=== PATIENT | male | born 1985 | race Caucasian/White ===

== ENCOUNTER 2020-03-14 09:37 | Outpatient (REF) | payer MEDICARE, SELFPAY | END 2020-03-14 09:38 | disposition home or self-care (01) | LOC: HO.HMGCLDS 09:37 | PROVIDERS: PCP Internal Medicine; Visit Provider Internal Medicine | DX: Z20.828 Contact with and (suspected) exposure to other viral communicable diseases (principal) | CPT/HCPCS: 36415; C9803; U0003 ==

== ENCOUNTER 2020-05-09 08:57 | Outpatient (REF) | payer MEDICARE, SELFPAY ==
[2020-05-09 09:51] LABS: MANUAL DIFF FLAG NO
[2020-05-09 09:56] LABS: Basophils Percent Auto 0.3 % (0-2); Eosinophils Percent Auto 0.9 % (0-4); Hematocrit 45.1 % (42-52); Hemoglobin 15.3 g/dl (14.0-18.0); Imm Gran Abs Auto 0.01 X10*3/uL (0.00-0.03); Imm Gran Pct Auto 0.3 % (0.0-0.4); Lymphocytes Absolute Auto 0.9 X10*3/uL (1.2-4.9); Lymphocytes Percent Auto 27.1 % (20-40); Mean Corpuscular HGB Conc 33.9 g/dl (31.0-36.0); Mean Corpuscular Hemoglobin 30.3 pg (27.0-33.0); Mean Corpuscular Volume 89.3 fL (80-98); Monocytes Absolute Auto 0.3 X10*3/uL (0.1-1.2); Monocytes Percent Auto 8.8 % (2-11); Neutrophils Absolute Auto 2.1 X10*3/uL (2.0-8.3); Neutrophils Percent Auto 62.6 % (45-73); Platelet Count 223 X10*3/uL (160-400); Red Blood Count 5.05 X10*6/uL (4.60-5.80); Red Cell Distribution Width 12.7 % (11.0-16.0); White Blood Count 3.3 X10*3/uL (4.8-10.8)
[2020-05-09 10:39] LABS: Alanine Aminotransferase 8 U/L (0-40); Albumin Level 4.6 g/dL (3.5-5.0); Alkaline Phosphatase 60 U/L (39-117); Anion Gap 10 (12-20); Aspartate Amino Transferase 21 U/L (5-37); Bilirubin Total 0.7 mg/dL (0.0-1.0); Blood Urea Nitrogen 10 mg/dL (9-16); Calcium 9.3 mg/dL (8.4-10.2); Carbon Dioxide 28 mmol/L (22-29); Chloride 106 mmol/L (96-108); Cholesterol 164 mg/dL; Estimated Glomerular Filt Rate > 60; Glucose Fasting 99 mg/dL (60-99); HDL Cholesterol 60 mg/dL; LDL Cholesterol Calculated 99 mg/dl; Potassium 4.1 mmol/L (3.3-5.1); Sodium 140 mmol/L (135-145); Total Protein 7.1 g/dL (6.5-8.0); Triglycerides 28 mg/dL
[2020-05-09 10:54] LABS: TSH reflex Free T4 1.06 uIU/mL (0.32-4.0)
[2020-05-09 12:19] LABS: Folate 17.7 ng/mL (> or = 4.0); Vitamin B12 412 pg/mL (200-900)
== END 2020-05-09 08:58 | disposition home or self-care (01) ==
LOC: HO.LAB 08:57
PROVIDERS: PCP Internal Medicine; Visit Provider Internal Medicine
DX: Z00.00 Encounter for general adult medical examination without abnormal findings (principal); F41.9 Anxiety disorder, unspecified; E66.3 Overweight; E78.00 Pure hypercholesterolemia, unspecified
CPT/HCPCS: 36415; 80053; 80061; 82607; 82746; 84443; 85025

== ENCOUNTER 2022-12-25 15:55 | Outpatient (AMB) | payer BC, MEDICARE, SELFPAY ==
--- NOTE | 2022-12-25 16:25 | A.OFFPC_ITS ---
Vital Signs 12/25/22 16:26 Height 5 ft 4 in Weight 121 lb 8 oz BMI 20.9 BP 102/70 Blood Pressure Location Lt brachial Position Sitting Pulse 90 Pulse Source Pulse Oximeter Pulse Oximetry (%) 96 Oxygen Delivery Method Room Air Intake Visit Reasons: Annual Physical Intake Note: Patient is here today for a physical. Manager Of Case Required: No Accompanied by: Self / Same As Patient Allergies No Known Allergies Allergy (Verified 12/25/22 16:27) Medication List - Last Reconciled 12/25/22 by Allison Camarillo MD multivitamin 1 tab PO DAILY Tobacco use date assessed: 12/25/22 Dental Screening Dental Screen Date: 12/25/22 Did you have a dental visit in the last 12 months?: Yes Did you have a dental problem in the last 6 months where you did not have access to dental care?: No Was dental information given to patient?: Patient has dentist HPI Annual Physical HPI Details 37-year-old male with Asperger's syndrom e generalized anxiety disorder and hypercholesterolemia last seen in February 2022. Patient is here for physical exam [facility] Medical History (Updated 02/20/22 @ 17:01 by Allison Camarillo MD) Desensitization to allergy shot Hemorrhoids Aspergers' syndrome Hypercholesterolemia Family History Mother Breast cancer genetic susceptibility Maternal Aunt Lung cancer Social History (Updated 12/25/22 @ 16:57 by Allison Camarillo MD) Housing: Other Alcohol intake: current Alcohol intake frequency: holidays/special occasions only Patient Tobacco Use Status: Never used Tobacco e-Cigarette/Vaping Use: Never Used Second Hand Smoke Exposure: No service: No Current occupational status: employed Cognitive needs: No Hearing needs: No Vision needs: No Questionnaire PHQ-9 Over the last 2 weeks, how often have you been bothered by any of the following problems? 1. Little interest or pleasure in doing things: not at all 2. Feeling down, depressed, or hopeless: not at all 3. Trouble falling or staying asleep, or sleeping too much: not at all 4. Feeling tired or having little energy: not at all 5. Poor appetite or overeating: not at all 6. Feeling bad about yourself - or that you are a failure or have let yourself or your family down: not at all 7. Trouble concentrating on things, such as reading the newspaper or watching television: not at all 8. Moving or speaking so slowly that other people could have noticed. Or the opposite - being so fidgety or restless that you have been moving around a lot more than usual: not at all 9. Thoughts that you would be better off or of hurting yourself in some way: not at all Total score: 0 Depression Screening Interpretation: Negative Depression Screening Done: Yes 46115 - PHQ-9 Billing: Yes Source: Developed by Drs. Kvng Gonzalez, Nick Bourgeois and colleagues, with an educational melanie from [employer]. Thrive Questionnaire Date Thrive assessed: 12/16/21 AUDIT C Alcohol Use Questionnaire (AUDIT-C) 1. How often do you have a drink containing alcohol?: Monthly or less 2. How many drinks containing alcohol do you have on a typical day when you are drinking?: 1 or 2 3. How often do you have six or more drinks on one occasion?: Never Total Score: 1 JESSIE-7 AMB Questionnaire JESSIE-7 Date JESSIE - 7 assessed: 12/25/22 Feeling nervous, anxious, or on edge: 0 = Not at all Not being able to stop or control worryin = Not at all Worrying too much about different things: 0 = Not at all Trouble relaxin = Not at all Being so restless that it is hard to sit still: 0 = Not at all Becoming easily annoyed or irritable: 0 = Not at all Feeling afraid as if something awful might happen: 0 = Not at all Total JESSIE-7 score (0-4 normal; 5-9 mild; 10-14 moderate; 15-21 severe): 0 Source: Developed by Drs. Kvng Gonzalez, Flaca Luo, Nick Durand and colleagues, with an educational melanie from [employer]. JESSIE-7 Assessment Billing JESSIE-7 Assessment Tool: JESSIE-7 Assessment 42097 Review of Systems Const Denies poor appetite and Denies weakness Eyes Denies no additional complaints ENT Reports Normal hearing present, Denies dizziness, Denies nasal congestion, Denies tinnitus and Denies sore throat Card Denies chest pain, Denies syncope, Denies rapid heart rate and Denies dyspnea Resp Denies cough and Denies dyspnea GI Denies change in stool character, Reports constipation, Denies diarrhea, Denies nausea and Denies vomiting Denies dysuria and Denies urinary frequency Neuro Reports Normal hearing present, Denies confusion, Denies dizziness, Denies syncope and Denies weakness Psych Denies confusion Physical exam (Primary Care) Vital Signs: Last Vital Signs Pulse 90 12/25/22 16:26 BP 102/70 12/25/22 16:26 Pulse Ox 96 12/25/22 16:26 Oxygen Delivery Method Room Air 12/25/22 16:26 BMI result Body Mass Index 20.9 Tobacco/Smoking Status: Tobacco use Status Tobacco use date assessed 12/25/22 12/25/22 16:33 Patient Tobacco Use Status Never used Tobacco 12/25/22 16:27 e-Cigarette/Vaping Use Never Used 12/25/22 16:27 PHQ-9: PHQ-9 Score PHQ-9: Total score 0 12/25/22 16:35 Depression Screening Interpretation: Negative Thrive Assessment: Date of Thrive Assessment Date Thrive assessed 12/16/21 12/25/22 16:27 Const General: alert and awake; No confusion Orientation/consciousness: No confusion HENMT Head: Yes normocephalic Ears: external ears normal and TM's normal bilaterally Face and sinus: Yes normal facial exam Mouth: moist mucous membranes Throat: Yes tonsils normal Eyes Conjunctivae: conjunctivae normal Pupils: Equal, round and reactive pupils present and Pupil accommodation reflex normal Direct Ophthalmoscopy: normal light reflex Neck Neck: No lymphadenopathy Thyroid: Thyroid normal Chest Chest palpation & inspection: normal inspection of the chest Resp Effort & Inspection: normal respiratory effort and no audible wheezes Auscultation: clear to auscultation bilaterally, no crackles, no wheezes and lung sounds not diminished Cardio Rate: regular rate Rhythm: regular rhythm Peripheral pulses: radial pulses present and dorsalis pedis present GI Other: visual negative Palpation (GI): no masses Auscultation: normal bowel sounds and normoactive bowel sounds Male General Exam: Yes normal external exam Skin General skin exam: no rashes or lesions noted Rashes: no rashes Neuro General: deep tendon reflexes 2+ bilaterally and No confusion Cranial nerves: Yes Equal, round and reactive pupils present, Yes Midline tongue present, Yes Normal hearing present and Yes Ability to bilaterally elevate shoulders present Cognition (Neuro): normal cognition Gait exam (Neuro): Normal gait present Motor exam (neuro): 5/5 motor strength present throughout Deep tendon reflexes (DTR's): Right brachioradialis reflex intensity grade: 2+, Left brachioradialis reflex intensity grade: 2+, Right patellar reflex intensity grade: 2+ and Left patellar reflex intensity grade: 2+ Extrem General: No edema Office Procedures Flu Questionnaire Does the patient have a severe egg allergy?: No Does the patient have severe life threatening allergies?: No Does the patient have a fever or illness today?: No Has the patient ever had Guillain-Cecil Syndrome?: No Has the patient ever had any past reaction to a flu shot?: No Immunizations flu vacc [id number] 6mos up(PF) 60 mcg(15 mcgx4)/0.5 mL IM syringe Performing Provider: Allison Camarillo MD Performing Location: [facility] Administered by: JOSE Quintanilla on 12/25/22 16:36 Dose Route Admin Location Dispensed Lot Number Expiration Date 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 0.5 mL IM Left Deltoid 0.5 mL [id number] 09/05/23 [id number] [employer] VIS Given Date VIS Provided VIS Publication Date 12/25/22 Single Vaccine 20 Eligibility Eligibility Date Funding Source Not [facility] Eligible 12/25/22 Private Assessment and Plan Assessment & Plan (1) Annual physical exam: Code(s): Z00.00 - Encounter for general adult medical examination without abnormal findings (2) Generalized anxiety disorder: Comment: Amna Goldstein 11/2019, decline referral (12/16/2021) Code(s): F41.1 - Generalized anxiety disorder Plan: Discussed about importance of counseling and therapy (3) Aspergers' syndrome: Comment: OCD, Tourette's syndrome [facility] Counseling Code(s): F84.5 - Asperger's syndrome Plan: Continue with counseling and therapy Orders: Orders Influenza [id number] Immunization Today Z23 - Encounter for immunization Coding Level of Care Code Est Pt Prev Care 18-39y(14274) Diagnoses Annual physical exam Z00.00 Generalized anxiety disorder F41.1 Aspergers' syndrome F84.5 Additional Codes JESSIE-7 Assessment Billing - JESSIE-7 Assessment Tool: JESSIE-7 Assessment 68090 ([id number])
[2022-12-25 16:26] VITALS: BP 102/70; PULSE 90; O2SAT 96; BMI 20.9
== END 2022-12-25 17:08 | disposition home or self-care (01) ==
PROVIDERS: Visit Provider Internal Medicine
DX: Z00.00 Encounter for general adult medical examination without abnormal findings (principal); F41.1 Generalized anxiety disorder; F84.5 Asperger's syndrome; Z23 Encounter for immunization
CPT/HCPCS: 90471; 90686; 99395

== ENCOUNTER 2023-09-13 13:09 | Outpatient (AMB) | payer BC, SELFPAY ==
[2023-09-13 13:17] VITALS: BP 104/70; PULSE 80; TEMP 36.7; O2SAT 98; BMI 21.7
--- NOTE | 2023-09-13 13:17 | AM.OFFWIN_ITS ---
Intake Vital Signs 09/13/23 13:17 Height 5 ft 4 in Weight 126 lb 6 oz BMI 21.7 BP 104/70 Blood Pressure Location Rt brachial Position Sitting Pulse 80 Pulse Source Pulse Oximeter Temp 98.0 F Temp Source Temporal Artery Scan Pulse Oximetry (%) 98 Oxygen Delivery Method Room Air Intake Visit Reasons: EP rash Intake Note: pt is here for rash on left hand Patient Tobacco Use Status: Never used Tobacco Allergies No Known Allergies Allergy (Verified 09/13/23 13:19) Medication List - Last Reconciled 09/13/23 by Marah Mcintyre NP multivitamin 1 tab PO DAILY triamcinolone acetonide 0.1% 1 appl topical BID 14 days Do you need a note to return to daycare/school/sports/work: No HPI EP rash HPI Details This note is constructed using voice recognition software. While every effort has been made to ensure accuracy, motion picture printer errors may have been included. 37-year-old male patient presents with 1 month history rash to left wrist. He notes that initially it started after using a particular type of glove, and it seemed to continue. The area is itchy. He denies any lesions to the area. He is tried topical hydrocortisone, however stopped as he was worried about using it for prolonged periods of time. When he stopped using it the area seemed to come back and get worse. He also notes that the area gets more red if he is to use [id number] lotions. He has had no new soaps, lotions, foods, or other exposures to his knowledge. He has no history of skin irritation or issues. No fever, chills. [facility] Medical History (Updated 02/20/22 @ 17:01 by Allison Camarillo MD) Desensitization to allergy shot Hemorrhoids Aspergers' syndrome Hypercholesterolemia Family History Mother Breast cancer genetic susceptibility Maternal Aunt Lung cancer Social History (Updated 12/25/22 @ 16:57 by Allison Camarillo MD) Housing: Other Alcohol intake: current Alcohol intake frequency: holidays/special occasions only Patient Tobacco Use Status: Never used Tobacco e-Cigarette/Vaping Use: Never Used Second Hand Smoke Exposure: No service: No Current occupational status: employed Cognitive needs: No Hearing needs: No Vision needs: No Review of Systems Const All systems reviewed & are unremarkable except as noted in HPI and below Physical Exam Vital Signs: Last Vital Signs Temp 98.0 F 09/13/23 13:17 Pulse 80 09/13/23 13:17 BP 104/70 09/13/23 13:17 Pulse Ox 98 09/13/23 13:17 Oxygen Delivery Method Room Air 09/13/23 13:17 BMI result Body Mass Index 21.7 Const General: cooperative, healthy appearing, comfortable, no acute distress and alert Orientation/consciousness: patient oriented x3 Limitations: no limitations Skin Other: 4 x 5 cm area to left dorsal wrist, erythematous with areas of excoriation. No lesions, no discharge, no warmth. General skin exam: elasticity normal and turgor normal Neuro General: patient oriented x3 Extrem General: Yes normal to inspection, Yes full ROM, Yes capillary refill normal and Yes normal exam except as noted Psych Appearance: grossly normal Mental Status: mental status grossly normal Speech and movement: Normal speech and movement present Affect: normal affect Assessment & Plan Assessment & Plan (1) Dermatitis: Code(s): L30.9 - Dermatitis, unspecified Plan: Medium potency topical steroid ordered. Advised follow-up worsening or failure to resolve Plan See above for full details and plan. Medications: New triamcinolone acetonide 0.1% 1 appl topical BID 14 days 15 grams 0RF Coding Level of Care Code Est Pt Level 3 (02811) Diagnoses Dermatitis L30.9
== END 2023-09-13 13:49 | disposition home or self-care (01) ==
PROVIDERS: PCP Internal Medicine; Visit Provider Registered Nurse
DX: L30.9 Dermatitis, unspecified (principal)
CPT/HCPCS: 99213

== ENCOUNTER 2023-12-27 16:20 | Outpatient (AMB) | payer BC, SELFPAY ==
--- NOTE | 2023-12-27 16:20 | A.OFFPC_ITS ---
Vital Signs 3 12/27/23 16:22 Height 5 ft 4 in Weight 123 lb 8 oz BMI 21.2 BP 90/66 Blood Pressure Location Lt brachial Position Sitting Pulse 84 Pulse Source Pulse Oximeter Pulse Oximetry (%) 97 Oxygen Delivery Method Room Air Intake Visit Reasons: pe Intake Note: Patient is here today for a physical. Community Health Coordinator Required: No Jigger Operator: Not Required per policy Accompanied by: Self / Same As Patient Allergies No Known Allergies Allergy (Verified 12/27/23 16:22) Medication List - Last Reconciled 12/27/23 by Allison Camarillo MD multivitamin 1 tab PO DAILY Tobacco use date assessed: 12/27/23 Dental Screening Dental Screen Date: 12/27/23 Did you have a dental visit in the last 12 months?: Yes Did you have a dental problem in the last 6 months where you did not have access to dental care?: No Was dental information given to patient?: Patient has dentist HPI pe 2 HPI0 Details 38-year-old male with Asperger's syndrom e and generalized anxiety disorder coming in for physical exam last seen last year. [facility] Medical History (Updated 12/27/23 @ 16:47 by Allison Camarillo MD) Desensitization to allergy shot Hemorrhoids Aspergers' syndrome Hypercholesterolemia Surgical History (Updated 12/27/23 @ 16:25 by MARTHA Andrews) No pertinent past surgical history Family History (Updated 12/27/23 @ 16:25 by MARTHA Andrews) Mother Breast cancer genetic susceptibility Maternal Aunt Lung cancer Social History (Updated 12/27/23 @ 16:40 by Allison Camarillo MD) Housing: Other Alcohol intake: current Alcohol intake frequency: holidays/special occasions only Comment: 2x a year 1-2 drinks Patient Tobacco Use Status: Never used Tobacco e-Cigarette/Vaping Use: Never Used Second Hand Smoke Exposure: No service: No Current occupational status: employed Cognitive needs: No Hearing needs: No Vision needs: Yes (Glasses) Questionnaire PHQ-9 Over the last 2 weeks, how often have you been bothered by any of the following problems? 1. Little interest or pleasure in doing things: not at all 2. Feeling down, depressed, or hopeless: not at all 3. Trouble falling or staying asleep, or sleeping too much: not at all 4. Feeling tired or having little energy: not at all 5. Poor appetite or overeating: not at all 6. Feeling bad about yourself - or that you are a failure or have let yourself or your family down: not at all 7. Trouble concentrating on things, such as reading the newspaper or watching television: not at all 8. Moving or speaking so slowly that other people could have noticed. Or the opposite - being so fidgety or restless that you have been moving around a lot more than usual: not at all 9. Thoughts that you would be better off or of hurting yourself in some way: not at all Total score: 0 Depression Screening Interpretation: Negative Depression Screening Done: Yes Source: Developed by Drs. Kvng Gonzalez, Flaac Luo, Nick Durand and colleagues, with an educational melanie from [employer]. Thrive Questionnaire Date Thrive assessed: 12/27/23 I am a: Patient What is your living situation today?: I have a steady place to live Within the past 12 months, did the food you bought not last and you didn't have the money to get more?: Never true Within the past 12 months, did you worry whether your food would run out before you got money to buy more?: Never true Do you have trouble paying for medicines?: No Do you have trouble getting transportation to medical appointments?: No Do you have trouble paying your heating and electricity bill?: No Do you have trouble taking care of your child, family member or friend?: No Do you have trouble with day-to-day activities such as bathing, preparing meals, shopping, managing finances, etc.?: No Are you currently unemployed and looking for a job?: No Are you interested in more education?: No Currently or been in a relationship where the following occur: No concerns reported THRIVE Score: 0 AUDIT C Alcohol Use Questionnaire (AUDIT-C) 1. How often do you have a drink containing alcohol?: Monthly or less 2. How many drinks containing alcohol do you have on a typical day when you are drinking?: 1 or 2 Total Score: 1 JESSIE-7 AMB Questionnaire JESSIE-7 Date JESSIE - 7 assessed: 12/27/23 Feeling nervous, anxious, or on edge: 0 = Not at all Not being able to stop or control worryin = Not at all Worrying too much about different things: 0 = Not at all Trouble relaxin = Not at all Being so restless that it is hard to sit still: 0 = Not at all Becoming easily annoyed or irritable: 0 = Not at all Feeling afraid as if something awful might happen: 0 = Not at all Total JESSIE-7 score (0-4 normal; 5-9 mild; 10-14 moderate; 15-21 severe): 0 Source: Developed by Drs. Kvng Gonzalez, Flaca Luo, Nick Durand and colleagues, with an educational melanie from [employer]. Review of Systems Const Denies poor appetite and Denies weakness Eyes Denies no additional complaints ENT Reports Normal hearing present, Denies dizziness, Denies nasal congestion, Denies tinnitus and Denies sore throat Card Denies chest pain, Denies syncope, Denies rapid heart rate and Denies dyspnea Resp Denies cough and Denies dyspnea GI Denies change in stool character, Reports constipation, Denies diarrhea, Denies nausea and Denies vomiting Denies dysuria and Denies urinary frequency Neuro Reports Normal hearing present, Denies confusion, Denies dizziness, Denies syncope and Denies weakness Psych Denies confusion Physical exam (Primary Care) Vital Signs: Last Vital Signs Pulse 84 12/27/23 16:22 BP 90/66 12/27/23 16:22 Pulse Ox 97 12/27/23 16:22 Oxygen Delivery Method Room Air 12/27/23 16:22 BMI result Body Mass Index 21.2 Tobacco/Smoking Status: Tobacco use Status Tobacco use date assessed 12/27/23 12/27/23 16:27 Patient Tobacco Use Status Never used Tobacco 12/27/23 16:40 e-Cigarette/Vaping Use Never Used 12/27/23 16:40 PHQ-9: PHQ-9 Score PHQ-9: Total score 0 12/27/23 16:41 Depression Screening Interpretation: Negative Thrive Assessment: Date of Thrive Assessment Date Thrive assessed 12/27/23 12/27/23 16:27 Currently or been in a relationship where the following occur: No concerns reported Const General: No confusion Orientation/consciousness: No confusion HENMT Head: Yes normocephalic Ears: external ears normal and TM's normal bilaterally Face and sinus: Yes normal facial exam Mouth: moist mucous membranes Throat: Yes tonsils normal Eyes Conjunctivae: conjunctivae normal Pupils: Equal, round and reactive pupils present and Pupil accommodation reflex normal Direct Ophthalmoscopy: normal light reflex Neck Neck: No lymphadenopathy Thyroid: Thyroid normal Chest Chest palpation & inspection: normal inspection of the chest Resp Effort & Inspection: normal respiratory effort and no audible wheezes Auscultation: clear to auscultation bilaterally, no crackles, no wheezes and lung sounds not diminished Cardio Rate: regular rate Rhythm: regular rhythm Peripheral pulses: radial pulses present and dorsalis pedis present GI Palpation (GI): no masses Auscultation: normal bowel sounds and normoactive bowel sounds Rectal Exam - Male: Yes deferred Back/Spine/Pelvis Back/spine/pelvis image: 2 1. 2 cm red rash with scaling in the middle Skin General skin exam: no rashes or lesions noted Rashes: no rashes Neuro General: No confusion Cranial nerves: Yes Equal, round and reactive pupils present and Yes Normal hearing present Cognition (Neuro): normal cognition Gait exam (Neuro): Normal gait present Motor exam (neuro): 5/5 motor strength present throughout Deep tendon reflexes (DTR's): Right brachioradialis reflex intensity grade: 2+, Left brachioradialis reflex intensity grade: 2+, Right patellar reflex intensity grade: 2+ and Left patellar reflex intensity grade: 2+ Extrem General: No edema Office Procedures Flu Questionnaire Does the patient have a severe egg allergy?: No Does the patient have severe life threatening allergies?: No Does the patient have a fever or illness today?: No Has the patient ever had Guillain-Hidalgo Syndrome?: No Has the patient ever had any past reaction to a flu shot?: No Immunizations Fluarix Triv [id number] (PF) 45 mcg (15 mcg x 3)/0.5 mL IM syringe Performing Provider: Allison Camarillo MD [facility] Administered by: Lucia Ross LPN on 12/27/23 16:47 2 Dose Route Admin Location Dispensed Lot Number Expiration Date [facility] Enamel Finisher 0.5 mL IM Left Deltoid 0.5 mL [id number] 09/04/24 [id number] [employer] 2 VIS Given Date VIS Provided VIS Publication Date 12/27/23 Single Vaccine 20 Eligibility Eligibility Date Funding Source Not [facility] Eligible 12/27/23 Private Coding Level of Care Code Est Pt Prev Care 18-39y(90068) Diagnoses Annual physical exam Z00.00 Aspergers' syndrome F84.5 Generalized anxiety disorder F41.1 Pilonidal cyst L05.91 Assessment & Plan Assessment & Plan (1) Annual physical exam: Code(s): Z00.00 - Encounter for general adult medical examination without abnormal findings Category: Medical Plan: Patient is advised to eat healthy, keep well hydrated, keep active and have adequate sleep. (2) Aspergers' syndrome: Comment: OCD, Tourette's syndrome [facility] Code(s): F84.5 - Asperger's syndrome Category: Medical Plan: Continue with counseling (3) Generalized anxiety disorder: Comment: Amna Goldstein 11/2019, decline referral (12/16/2021) Code(s): F41.1 - Generalized anxiety disorder Category: Medical Plan: Continue with counseling (4) Pilonidal cyst: Code(s): L05.91 - Pilonidal cyst without abscess Category: Medical Plan: reassurnace for now . but if drainage come - call Orders: Orders 2 Complete Blood Count Auto Diff Today F41.1 - Generalized anxiety disorder Thyroid Stimulating Hormone Today F41.1 - Generalized anxiety disorder Vitamin B12 and Folate Today F41.1 - Generalized anxiety disorder Comprehensive Met. Panel Today F41.1 - Generalized anxiety disorder Free T4 (Free Thyroxine) Today F41.1 - Generalized anxiety disorder Lipid Panel Today E78.00 - Pure hypercholesterolemia, unspecified, F41.1 - Generalized anxiety disorder Influenza [id number] Immunization Today Z23 - Encounter for immunization
[2023-12-27 16:22] VITALS: BP 90/66; PULSE 84; O2SAT 97; BMI 21.2
== END 2023-12-27 16:51 | disposition home or self-care (01) ==
PROVIDERS: PCP Internal Medicine; Visit Provider Internal Medicine
DX: Z00.00 Encounter for general adult medical examination without abnormal findings (principal); F84.5 Asperger's syndrome; F41.1 Generalized anxiety disorder; L05.91 Pilonidal cyst without abscess; Z23 Encounter for immunization

== ENCOUNTER → 2023-12-27 16:20 | Outpatient (BNVA) | payer BC, SELFPAY | PROVIDERS: PCP Internal Medicine; Visit Provider Internal Medicine | DX: Z00.00 Encounter for general adult medical examination without abnormal findings (principal); F84.5 Asperger's syndrome; F42.9 Obsessive-compulsive disorder, unspecified; F95.2 Tourette's disorder; F41.1 Generalized anxiety disorder; L05.91 Pilonidal cyst without abscess; Z23 Encounter for immunization | CPT/HCPCS: 90471; 90656; 96127 ==

== ENCOUNTER 2024-07-21 12:45 | Outpatient (REF) | payer BC, SELFPAY ==
[2024-07-21 13:00] LABS: MANUAL DIFF FLAG NO
[2024-07-21 13:16] LABS: Basophils Percent Auto 0.8 % (0-2); Eosinophils Absolute Auto 0.1 X10*3/uL (0.0-0.4); Eosinophils Percent Auto 3.4 % (0-4); Hematocrit 42.3 % (42.0-52.0); Hemoglobin 14.7 g/dl (14.0-18.0); Imm Gran Abs Auto 0.01 X10*3/uL (0.00-0.03); Imm Gran Pct Auto 0.3 % (0.0-0.4); Lymphocytes Absolute Auto 0.8 X10*3/uL (1.2-4.9); Lymphocytes Percent Auto 21.8 % (20-40); Mean Corpuscular HGB Conc 34.8 g/dl (31.0-36.0); Mean Corpuscular Hemoglobin 30.4 pg (27.0-33.0); Mean Corpuscular Volume 87.4 fL (80.0-98.0); Mean Platelet Volume 8.8 fL (9.4-12.4); Monocytes Absolute Auto 0.3 X10*3/uL (0.1-1.2); Monocytes Percent Auto 8.8 % (2-11); Neutrophils Absolute Auto 2.5 x10*3/uL (2.0-8.3); Neutrophils Percent Auto 64.9 % (45-73); Platelet Count 201 X10*3/uL (160-400); Red Blood Count 4.84 X10*6/uL (4.60-5.80); Red Cell Distribution Width 12.3 % (11.0-16.0); White Blood Count 3.8 X10*3/uL (4.8-10.8)
[2024-07-21 13:53] LABS: Alanine Aminotransferase 19 U/L (0-40); Albumin Level 4.4 g/dL (3.5-5.0); Alkaline Phosphatase 51 U/L (39-117); Anion Gap 10 (12-20); Aspartate Amino Transferase 36 U/L (5-37); Bilirubin Total 0.9 mg/dL (0.0-1.0); Blood Urea Nitrogen 15 mg/dL (9-16); Carbon Dioxide 27 mmol/L (22-29); Chloride 107 mmol/L (96-108); Cholesterol 165 mg/dL (<200); Estimated Glomerular Filt Rate > 60; Glucose Random 92 mg/dL (60-115); HDL Cholesterol 70 mg/dL (>40); LDL Cholesterol Calculated 88 mg/dL (<100); Potassium 3.7 mmol/L (3.3-5.1); Sodium 140 mmol/L (135-145); Triglycerides 37 mg/dL (<150)
[2024-07-21 14:11] LABS: Folate 12.8 ng/mL (> or = 4.0); Vitamin B12 520 pg/mL (200-900)
[2024-07-21 14:15] LABS: Free T4 (Free Thyroxine) 0.79 ng/dL (0.71-1.85); Thyroid Stimulating Hormone 0.76 uIU/mL (0.32-4.0)
== END 2024-07-21 12:46 | disposition home or self-care (01) ==
LOC: HO.LAB 12:45
PROVIDERS: PCP Internal Medicine; Visit Provider Internal Medicine
DX: F41.1 Generalized anxiety disorder (principal); E78.00 Pure hypercholesterolemia, unspecified
CPT/HCPCS: 36415; 80053; 80061; 82607; 82746; 84439; 84443; 85025

== ENCOUNTER 2024-12-28 16:05 | Outpatient (AMB) | payer BC, SELFPAY ==
[2024-12-28 16:24] VITALS: BP 106/64; PULSE 80; O2SAT 97; BMI 21.5
--- NOTE | 2024-12-28 16:24 | MHC.PC.OV ---
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 Required: No Accompanied by: Self / Same As Patient Allergies No Known Allergies Allergy (Verified 12/28/24 16:24) Medication List - Last Reconciled 12/28/24 by Allison Camarillo MD multivitamin 1 tab PO DAILY Tobacco use date assessed: 12/28/24 Dental Screening Dental Screen Date: 12/28/24 Did you have a dental visit in the last 12 months?: Yes Did you have a dental problem in the last 6 months where you did not have access to dental care?: No Was dental information given to patient?: Patient has dentist [facility] Medical History (Updated 12/27/23 @ 16:47 by Allison Camarillo MD) Desensitization to allergy shot Hemorrhoids Aspergers' syndrome Hypercholesterolemia Surgical History No pertinent past surgical history Family History Mother Breast cancer genetic susceptibility Maternal Aunt Lung cancer Social History Housing: Other Alcohol intake: current Alcohol intake frequency: holidays/special occasions only Comment: 2x a year 1-2 drinks Patient Tobacco Use Status: Never used Tobacco e-Cigarette/Vaping Use: Never Used Second Hand Smoke Exposure: No service: No Current occupational status: employed Cognitive needs: No Hearing needs: No Vision needs: Yes (Glasses) Questionnaire PHQ-9 Over the last 2 weeks, how often have you been bothered by any of the following problems? 1. Little interest or pleasure in doing things: not at all 2. Feeling down, depressed, or hopeless: not at all 3. Trouble falling or staying asleep, or sleeping too much: not at all 4. Feeling tired or having little energy: not at all 5. Poor appetite or overeating: not at all 6. Feeling bad about yourself - or that you are a failure or have let yourself or your family down: not at all 7. Trouble concentrating on things, such as reading the newspaper or watching television: not at all 8. Moving or speaking so slowly that other people could have noticed. Or the opposite - being so fidgety or restless that you have been moving around a lot more than usual: not at all 9. Thoughts that you would be better off or of hurting yourself in some way: not at all Total score: 0 Source: Developed by Drs. Kvng Gonzalez, Flaca Luo, Nick Durand and colleagues, with an educational melanie from [employer]. Thrive Questionnaire Date Thrive assessed: 12/28/24 I am a: Patient What is your living situation today?: I have a steady place to live Within the past 12 months, did the food you bought not last and you didn't have the money to get more?: Never true Within the past 12 months, did you worry whether your food would run out before you got money to buy more?: Never true Do you have trouble paying for medicines?: No Do you have trouble getting transportation to medical appointments?: No Do you have trouble paying your heating and electricity bill?: No Do you have trouble taking care of your child, family member or friend?: No Do you have trouble with day-to-day activities such as bathing, preparing meals, shopping, managing finances, etc.?: No Are you currently unemployed and looking for a job?: No Are you interested in more education?: I choose not to answer this question Please select the resources that you would like help with: None Currently or been in a relationship where the following occur: No concerns reported THRIVE Score: 0 AUDIT C Alcohol Use Questionnaire (AUDIT-C) 1. How often do you have a drink containing alcohol?: Never 3. How often do you have six or more drinks on one occasion?: Never Total Score: 0 JESSIE-7 AMB Questionnaire JESSIE-7 Date JESSIE - 7 assessed: 12/28/24 Feeling nervous, anxious, or on edge: 0 = Not at all Not being able to stop or control worryin = Not at all Worrying too much about different things: 0 = Not at all Trouble relaxin = Not at all Being so restless that it is hard to sit still: 0 = Not at all Becoming easily annoyed or irritable: 0 = Not at all Feeling afraid as if something awful might happen: 0 = Not at all Total JESSIE-7 score (0-4 normal; 5-9 mild; 10-14 moderate; 15-21 severe): 0 Source: Developed by Drs. Kvng Gonzalez, Flaca Luo, Nick Durand and colleagues, with an educational melanie from [employer]. Review of Systems Const Denies poor appetite and Denies weakness Eyes Denies no additional complaints ENT Reports Normal hearing present, Denies dizziness, Denies nasal congestion, Denies tinnitus and Denies sore throat Card Denies chest pain, Denies syncope, Denies rapid heart rate and Denies dyspnea Resp Denies cough and Denies dyspnea GI Denies change in stool character, Reports constipation, Denies diarrhea, Denies nausea and Denies vomiting Denies dysuria and Denies urinary frequency Neuro Reports Normal hearing present, Denies confusion, Denies dizziness, Denies syncope and Denies weakness Psych Denies confusion Physical exam (Primary Care) Vital Signs: Last Vital Signs Pulse 80 12/28/24 16:24 BP 106/64 12/28/24 16:24 Pulse Ox 97 12/28/24 16:24 BMI result Body Mass Index 21.5 Tobacco/Smoking Status: Tobacco use Status Tobacco use date assessed 12/28/24 12/28/24 16:28 Patient Tobacco Use Status Never used Tobacco 12/28/24 16:24 e-Cigarette/Vaping Use Never Used 12/28/24 16:24 PHQ-9: PHQ-9 Score PHQ-9: Total score 0 12/28/24 16:53 Thrive Assessment: Date of Thrive Assessment Date Thrive assessed 12/28/24 12/28/24 16:28 Currently or been in a relationship where the following occur: No concerns reported Const General: alert and awake; No confusion Orientation/consciousness: No confusion HENMT Head: Yes normocephalic Ears: external ears normal and TM's normal bilaterally Face and sinus: Yes normal facial exam Mouth: moist mucous membranes Throat: Yes tonsils normal Eyes Conjunctivae: conjunctivae normal Pupils: Equal, round and reactive pupils present and Pupil accommodation reflex normal Direct Ophthalmoscopy: normal light reflex Neck Neck: No lymphadenopathy Thyroid: Thyroid normal Chest Chest palpation & inspection: normal inspection of the chest Resp Effort & Inspection: normal respiratory effort and no audible wheezes Auscultation: clear to auscultation bilaterally, no crackles, no wheezes and lung sounds not diminished Cardio Rate: regular rate Rhythm: regular rhythm Peripheral pulses: radial pulses present and dorsalis pedis present GI Palpation (GI): no masses Auscultation: normal bowel sounds and normoactive bowel sounds Rectal Exam - Male: Yes deferred Skin General skin exam: no rashes or lesions noted Rashes: no rashes Neuro General: deep tendon reflexes 2+ bilaterally and No confusion Cranial nerves: Yes Equal, round and reactive pupils present, Yes Midline tongue present, Yes Normal hearing present and Yes Ability to bilaterally elevate shoulders present Cognition (Neuro): normal cognition Gait exam (Neuro): Normal gait present Motor exam (neuro): 5/5 motor strength present throughout Deep tendon reflexes (DTR's): Right brachioradialis reflex intensity grade: 2+, Left brachioradialis reflex intensity grade: 2+, Right patellar reflex intensity grade: 2+ and Left patellar reflex intensity grade: 2+ Extrem General: No edema Immunizations Boostrix Tdap 2.5 Lf unit-8 mcg-5 Lf/0.5 mL intramuscular syringe Performing Provider: Allison Camarillo MD Performing Location: [facility] [place] [facility] Administered by: Catrachita Morris CMA on 12/28/24 17:09 Dose Route Admin Location Dispensed Lot Number Expiration Date [facility] Bilingual Teacher 0.5 mL IM Left Deltoid 0.5 mL [id number] 06/02/27 04890-013-65 [employer] Total Dispensed Waste 0.5 mL 0 % VIS Given Date VIS Provided VIS Publication Date 12/28/24 Single Vaccine 20 Eligibility Eligibility Date Funding Source Not [facility] Eligible 12/28/24 Private Coding Level of Care Code Est Pt Prev Care [id number]) Diagnoses Annual physical exam Z00.00 Aspergers' syndrome F84.5 Generalized anxiety disorder F41.1 Assessment & Plan Assessment & Plan (1) Annual physical exam: Code(s): Z00.00 - Encounter for general adult medical examination without abnormal findings Category: Medical Plan: Patient is advised to eat healthy, keep well hydrated, keep active and have adequate sleep. (2) Aspergers' syndrome: Comment: OCD, Tourette's syndrome [facility] Code(s): F84.5 - Asperger's syndrome Category: Medical Plan: Continue to follow-up with counseling (3) Generalized anxiety disorder: Comment: Amna Goldstein 11/2019, decline referral (12/16/2021) Code(s): F41.1 - Generalized anxiety disorder Category: Medical Plan: Continue with counseling Plan History of Present Illness The patient is a 39-year-old male presenting for a physical examination. The patient has a history of hypercholesterolemia, which has been managed effectively with an LDL cholesterol level of 88 mg/dL and HDL of 70 mg/dL as of the last blood work in July. The patient reports no new symptoms or changes in his condition since the last evaluation. The patient also has a diagnosis of Generalized Anxiety Disorder and Asperger Syndrome. He continues to follow up with counseling for these conditions. The patient's last blood work indicated mild leukopenia, which has been a consistent finding over the past four to five years. Other laboratory results, including renal function, liver function, and electrolytes, were within normal limits. The patient denies any new diagnoses or surgeries since the last visit. He reports no allergies to medications and only takes multivitamins. Family history is significant for lung cancer in two aunts who were smokers and breast cancer in his biological mother. The patient denies any personal history of heart disease or other cancers. Social history reveals that the patient consumes alcohol inconsistently, sometimes going up to five months without drinking. He denies smoking or using recreational drugs. Health Maintenance - Tetanus vaccination is due, last received in 2014 - Plans to receive flu and COVID-19 vaccinations Social History - Alcohol consumption is inconsistent, with periods of up to five months without drinking - Denies smoking or use of recreational drugs Review of Systems - General: Denies fever, weight loss, or fatigue - Cardiovascular: Denies chest pain or palpitations - Respiratory: Denies dyspnea or cough - Gastrointestinal: Denies nausea, vomiting, or abdominal pain - Genitourinary: Denies dysuria or hematuria - Neurological: Denies dizziness or headaches Physical Exam General: Cooperative, healthy appearing, comfortable, no acute distress and well developed Orientation: Patient oriented x3 Limitations: No limitations Head: Normal to inspection Ears: Hearing grossly normal bilaterally Nose: Normal external nose present Face and sinus: Normal facial exam Eyes: Appearance normal, both eyes and all related structures Neck: Normal visual inspection and Yes full ROM Respiratory: Normal respiratory effort and able to speak in complete sentences. Clear to auscultation bilaterally Cardiovascular: Regular rate and rhythm. Normal S1 and S2 GI: Normal to inspection. Soft to palpation and nontender Skin: No rashes or lesions noted Neuro: Patient oriented x3 Extremities: Normal to inspection Results - Labs: Mild leukopenia noted, consistent over four to five years - Labs: LDL cholesterol at 88 mg/dL, HDL at 70 mg/dL - Labs: Normal renal function, liver function, and electrolytes Plan Patient was informed and verbally consented to the use of an ambient scribe for clinic note documentation during this visit. 1. Hypercholesterolemia The patient's hypercholesterolemia is well-managed with an LDL level of 88 mg/dL and HDL of 70 mg/dL. Continued monitoring of lipid levels is recommended. 2. Generalized Anxiety Disorder The patient continues to follow up with counseling for Generalized Anxiety Disorder. 3. Asperger Syndrome The patient is managing Asperger Syndrome with ongoing counseling support. 4. Preventative Care The patient is due for a tetanus vaccination, last received in 2014. Plans to receive flu and COVID-19 vaccinations were discussed. Discussion Notes During the visit, we discussed the management of hypercholesterolemia, which is currently well-controlled. The importance of continued counseling for Generalized Anxiety Disorder and Asperger Syndrome was emphasized. We also reviewed the need for preventative vaccinations, including tetanus, flu, and COVID-19. The patient was advised to verify insurance coverage for vaccinations at [facility] or the clinic. We discussed the importance of maintaining a healthy lifestyle, including regular hydration, balanced diet, and physical activity. Patient Instructions - Continue regular follow-ups with counseling for anxiety and Asperger Syndrome. - Monitor cholesterol levels regularly. - Schedule tetanus vaccination, and consider flu and COVID-19 vaccinations. - Maintain a healthy lifestyle with regular exercise, balanced diet, and adequate hydration. Orders: Orders TDaP Immunization Today Z23 - Encounter for immunization
== END 2024-12-28 17:14 | disposition home or self-care (01) ==
LOC: HO.HMCH 16:05
PROVIDERS: PCP Internal Medicine; Visit Provider Internal Medicine
DX: Z00.00 Encounter for general adult medical examination without abnormal findings (principal); F84.5 Asperger's syndrome; F41.1 Generalized anxiety disorder; Z23 Encounter for immunization

== ENCOUNTER → 2024-12-28 16:05 | Outpatient (BNVA) | payer BC, SELFPAY | PROVIDERS: PCP Internal Medicine; Visit Provider Internal Medicine | DX: Z00.00 Encounter for general adult medical examination without abnormal findings (principal); F84.5 Asperger's syndrome; F41.1 Generalized anxiety disorder; E78.00 Pure hypercholesterolemia, unspecified; Z23 Encounter for immunization | CPT/HCPCS: 90471; 90715; 96127 ==